=== PATIENT | female | born 1995 ===

== ENCOUNTER 2016-12-19 14:21 | Emergency (ER) | payer OTHER ==
[2016-12-19 14:50] VITALS: BP 129/82
[2016-12-19] MEDS ORDERED: Albuterol/Ipratropium NEB.SOL* Albuterol 2.5 MG/Ipratropium 0.5 MG 3 ML INH ONE (14:57)
--- NOTE | 2016-12-19 14:57 | UC ---
Asthma HPI - HPI Summary HPI Summary: complaint of coughing and wheezing that started approx 3 days ago has needed to use her albuterol 2x day for the past 2 days with some relief early in the morning and late at night symptoms are worse denies nasal congestion, sore throat, headache or fever hasn't tried any other medications - History of Current Complaint Chief Complaint: UCRespiratory Stated Complaint: PERSISTENT COUGH Time Seen by Provider: 12/19/16 14:49 Hx Obtained From: Patient Hx Last Menstrual Period: 12/16/16 - Allergy/Home Medications Allergies/Adverse Reactions: Allergies Allergy/AdvReac Type Severity Reaction Status Date / Time No Known Allergies Allergy Verified 12/19/16 14:41 Home Medications: Home Medications Albuterol HFA INHALER* [Ventolin HFA Inhaler*] 2 puff INH Q4H PRN 12/19/16 [ History Confirmed 12/19/16] Amphetamine-Dextroamphetamine [Adderall 10 mg-] 1 tab PO DAILY 12/19/16 [ History Confirmed 12/19/16] busPIRone TAB* [Buspar TAB*] 20 mg PO BID 12/19/16 [History Confirmed 12/19/16] PMH/Surg Hx/FS Hx/Imm Hx Previously Healthy: Yes Respiratory History Of: Reports: Asthma - Surgical History Surgical History: Yes Surgery Procedure, Year, and Place: ACL REPAIR. FX TIB/FIB REPAIR - Family History Known Family History: Negative: Cardiac Disease, Hypertension, Diabetes - Social History Occupation: Student Lives: With Family Alcohol Use: Occasionally Substance Use Type: None Smoking Status (MU): Never Smoked Tobacco - Immunization History Most Recent Influenza Vaccination: MAY 2016 Review of Systems Constitutional: Negative Skin: Negative Eyes: Negative ENT: Negative Respiratory: Cough Cardiovascular: Negative Gastrointestinal: Negative Genitourinary: Negative Motor: Negative Neurovascular: Negative Musculoskeletal: Negative Neurological: Negative Psychological: Negative All Other Systems Reviewed And Are Negative: Yes Physical Exam Triage Information Reviewed: Yes Appearance: No Pain Distress, Well-Nourished Vital Signs: Initial Vital Signs Temp 99.6 F 12/19/16 14:42 Pulse 91 12/19/16 14:42 Resp 16 12/19/16 14:42 BP 129/82 12/19/16 14:42 Pulse Ox 100 12/19/16 14:42 Vital Signs Reviewed: Yes Eyes: Positive: Conjunctiva Clear ENT: Positive: Pharynx normal, TMs normal. Negative: Nasal congestion Neck: Positive: No Lymphadenopathy Respiratory: Positive: Wheezing - throughout Cardiovascular: Positive: RRR, No Murmur, Pulses Normal Abdomen Description: Positive: Nontender, Soft Bowel Sounds: Positive: Present Musculoskeletal: Positive: No Edema Neurological: Positive: Alert Psychological Exam: Normal Skin Exam: Normal Re-Evaluation - Re-Evaluation First Eval Re-Evaluation Time: 15:23 Change: Improved - less wheezing , more air movement throughout all lung bourne Asthma Course/Dx - Differential Dx/Diagnosis Differential Diagnosis/HQI/PQRI: Acute Asthma, Pneumonia Provider Diagnoses: asthma exacerbation Discharge - Discharge Plan Condition: Stable Disposition: HOME Prescriptions: predniSONE TAB* [Deltasone TAB*] 50 mg PO DAILY #5 tab Patient Education Materials: Asthma (ED), Wheezing (ED) Referrals: [facility] [place] [facility] [Outside] Additional Instructions: Please take prednisone as directed Use your albuterol inhaler every 4-6 hours when needed for wheezing, shortness of breath or uncontrolled coughing. Increase fluids and rest Take acetaminophen or ibuprofen for fever or pain Please review your discharge instructions. If your symptoms do not improve please call your primary care provider or return to urgent care.
== END 2016-12-19 15:36 | disposition home or self-care (01) ==
LOC: UCCORT 14:21
DX: J45.901 Unspecified asthma with (acute) exacerbation (principal)
CPT/HCPCS: 99202; A9270-GY; G0463